=== PATIENT | male | born 1975 | race Hispanic/Latino ===

== ENCOUNTER 2017-10-30 13:04 | Emergency (ER) | payer MEDICAID, OTHER ==
[2017-10-30 13:20] VITALS: BP 146/96; PULSE 99; RESP 20; TEMP 98.6; O2SAT 98
--- NOTE | 2017-10-30 14:13 | C.PDOC ---
History Of Present Illness 42 year old male presents to the ER with a complaint of eye redness and discharge for the past 3 days. Patient reports he uses contact lenses. Denies fever, trauma, vision, change, or pain. EYE RED , DC X 3 DAYS. NO FEVER. +CONTACT LENS USE. NO TRAUMA, VISION CHANGE. NO PAIN EXAM NAD HEENT +CONJUNCTIVITIS R EYE. PERIORB NEG REMAINDE RNEG Time Seen by Provider: 10/30/17 13:40 Chief Complaint (Nursing): Eye Problem History Per: Patient History/Exam Limitations: no limitations Onset/Duration Of Symptoms: Days Current Symptoms Are (Timing): Still Present Injury To Eye?: No Wears Contact Lens?: Yes Associated Symptoms: Discharge From Eye, Other (Redness). denies: Pain Recent travel outside of the [place]: No Past Medical History Reviewed: Historical Data, Nursing Documentation, Vital Signs Vital Signs: Last Vital Signs Temp 98.6 F 10/30/17 13:16 Pulse 99 H 10/30/17 13:16 Resp 20 10/30/17 13:16 BP 146/96 H 10/30/17 13:16 Pulse Ox 98 10/30/17 14:15 Family History: States: Unknown Family Hx - Social History Hx Tobacco Use: No Hx Alcohol Use: Yes Hx Substance Use: Yes - Immunization History Hx Tetanus Toxoid Vaccination: No Hx Influenza Vaccination: No Hx Pneumococcal Vaccination: No Review Of Systems Except As Marked, All Systems Reviewed And Found Negative. Constitutional: Negative for: Fever Eyes: Positive for: Redness, Other (Discharge). Negative for: Pain, Vision Change Physical Exam - Physical Exam Appears: Non-toxic, No Acute Distress Skin: Normal Color, Warm, Dry Head: Atraumatic, Normacephalic Eye(s): bilateral: PERRL, EOMI, right: Other (Conjunctivitis, periorbital area normal), left: Normal Inspection Ear(s): Bilateral: Normal Nose: Normal Oral Mucosa: Moist Neck: Normal, Supple Neurological/Psych: Oriented x3, Normal Speech ED Course And Treatment O2 Sat by Pulse Oximetry: 98 (Room air) Pulse Ox Interpretation: Normal Disposition Counseled Patient/Family Regarding: Diagnosis, Need For Followup, Rx Given - Disposition Referrals: Yared Bauman [Staff Provider] - YOUR,OPTHOMOLOGIST [Other] Disposition: HOME/ ROUTINE Disposition Time: 14:15 Condition: GOOD Prescriptions: Ciprofloxacin 0.3% [Ciloxan 0.3% Ophth SOLN] 2 drop OD Q2 #1 bottle Instructions: Conjunctivitis (ED) Forms: [facility] ([place]), Work Excuse - Clinical Impression Clinical Impression: Conjunctivitis - Scribe Statement The provider has reviewed the documentation as recorded by the Scribe Maximilian Ma All medical record entries made by the Scribe were at my direction and personally dictated by me. I have reviewed the chart and agree that the record accurately reflects my personal performance of the history, physical exam, medical decision making, and the department course for this patient. I have also personally directed, reviewed, and agree with the discharge instructions and disposition.
== END 2017-10-30 14:21 | disposition home or self-care (01) ==
LOC: C.ER 13:04
DX: H10.9 Unspecified conjunctivitis (principal)

== ENCOUNTER 2017-12-08 09:13 | Emergency (ER) | payer OTHER ==
[2017-12-08 09:23] VITALS: BP 117/62; PULSE 70; RESP 18; TEMP 98.3; O2SAT 99
--- NOTE | 2017-12-08 09:41 | C.PDOC ---
History Of Present Illness 42 year old male presents to the ER with a complaint of exacerbation of his chronic right ankle pain for the past month. Patient has a Hx of right ankle open reduction internal fixation 2 years ago; he usually has intermittent pain to the area, however, now the pain is constant. Patient reports the pain is localized to the right medial malleolus with occasional radiation to the right medial tibia/fibula. Patient states the pain is worse in the morning and with weight bearing, but improves "once I get moving". Patient notes he used to use percocet 5mg on occasions but denies any chronic pain medication use now and has not tried any OTC pain medication. Denies any new trauma. EXAC CHRONIC R ANKLE PAIN X 1 MO. HO R ANKLE ORIF 2 YRS AGO, USUALLY W INTERMIT PAIN TO AREA NOW PAIN IS CONSTANT. LOCALIZED R MED MALLEOLUS W OCC RADIATION R MEDIAL TIB/FIB. WORSE IN MORNING AND WT BEAR BUT IMPROVES "ONCE I GET MOVING". DENIES NEW TRAUMA. PS USED TO USE PERCOCET 5 MG ON OCCASION BUT DENIES CHRONIC PAIN MED USE. NO OTC PAIN MED TRIED EXAM NAD EXT R LEG +POST OP SCARRING R MED MALL, R PROX MED TIB/FIB. AROM WO DIFF. NO FOCAL TEND. NO GROSS DEFORM SKIN INTACT REMAINDER NEG Time Seen by Provider: 12/08/17 09:29 Chief Complaint (Nursing): Back Pain History Per: Patient History/Exam Limitations: no limitations Onset/Duration Of Symptoms: Days Current Symptoms Are (Timing): Still Present Recent travel outside of the [place]: No Past Medical History Reviewed: Historical Data, Nursing Documentation, Vital Signs Vital Signs: Last Vital Signs Temp 98.3 F 12/08/17 09:21 Pulse 70 12/08/17 09:21 Resp 18 12/08/17 09:21 BP 117/62 12/08/17 09:21 Pulse Ox 99 12/08/17 10:14 - Medical History PMH: Fractures Family History: States: Unknown Family Hx - Social History Hx Tobacco Use: No Hx Alcohol Use: Yes Hx Substance Use: Yes (marijuana) - Immunization History Hx Tetanus Toxoid Vaccination: No Hx Influenza Vaccination: No Hx Pneumococcal Vaccination: No Review Of Systems Except As Marked, All Systems Reviewed And Found Negative. Musculoskeletal: Positive for: Foot Pain (Chronic right ankle pain) Neurological: Negative for: Weakness, Numbness Physical Exam - Physical Exam Appears: Non-toxic, No Acute Distress Skin: Normal Color, Warm, Dry Head: Atraumatic, Normacephalic Eye(s): bilateral: Normal Inspection Extremity: Other (Right leg with post op scarring to right medial malleolus and right proximal medial tibia/fibula. ROM without any difficulty. No focal tenderness. No gross deformity.) Pulses: Left Dorsalis Pedis: Normal, Right Dorsalis Pedis: Normal Neurological/Psych: Oriented x3, Normal Speech, Normal Motor, Normal Sensation Gait: Steady ED Course And Treatment O2 Sat by Pulse Oximetry: 99 - Other Rad Right ankle x-ray X-Ray: Interpreted by Me, Viewed By Me Interpretation: No acute fractures or dislocations. Right tibia/fibula x-ray X-Ray: Interpreted by Me, Viewed By Me Interpretation: No acute fractures or dislocations. Reevaluation Time: 10:11 Reassessment Condition: Unchanged (NO ACUTE FINDINGS. PAIN MEDS, REFERRAL PAIN MGMT, ADVISED POSSIBLE NEED FOR P.T.) Medical Decision Making Medical Decision Making: Plan: * Right ankle x-ray * Right tibia/fibula Disposition Counseled Patient/Family Regarding: Studies Performed, Diagnosis, Need For Followup, Rx Given - Disposition Referrals: Pierre Starks MD [Staff Provider] - Disposition: HOME/ ROUTINE Disposition Time: 10:12 Condition: GOOD Prescriptions: Ibuprofen [Motrin Tab] 800 mg PO Q6 #30 tab oxyCODONE/Acetaminophen [Percocet 5/325 mg Tab] 1 ea PO QID #8 tab Instructions: Ankle Strengthening Exercises Forms: [facility] ([place]), Work Excuse - Clinical Impression Clinical Impression: Chronic ankle pain - Scribe Statement The provider has reviewed the documentation as recorded by the Scribe Maximilian Ma All medical record entries made by the Scribe were at my direction and personally dictated by me. I have reviewed the chart and agree that the record accurately reflects my personal performance of the history, physical exam, medical decision making, and the department course for this patient. I have also personally directed, reviewed, and agree with the discharge instructions and disposition.
--- NOTE | 2017-12-08 10:09 | RAD ---
PROCEDURE: Right Ankle Radiographs. HISTORY: PAIN HO ORIF COMPARISON: None FINDINGS: BONES: Bone alignment and mineralization are normal. There is no acute displaced fracture or bone destruction. Status post open reduction and internal fixation of distal tibial fracture. There is no evidence of loosening or screw fracture. A well corticated ossific density inferior to the medial malleolus likely represents an accessory ossification center. JOINTS: Normal. Ankle mortise maintained. Talar dome intact SOFT TISSUES: Normal. OTHER FINDINGS: None. IMPRESSION: No acute fracture or dislocation. Status post ORIF distal tibial fracture, no evidence of hardware complications.
--- NOTE | 2017-12-08 10:13 | RAD ---
PROCEDURE: Radiographs of the right tibia and fibula. HISTORY: PAIN HO ORIF COMPARISON: None available. TECHNIQUE: Frontal and lateral views obtained. FINDINGS: BONES: Bone alignment and mineralization are normal. There is no acute displaced fracture or bone destruction. Status post open reduction and internal fixation of distal tibial fracture. No hardware complications. JOINT SPACES: Unremarkable. OTHER FINDINGS: None. IMPRESSION: No acute fracture or dislocation.
== END 2017-12-08 10:25 | disposition home or self-care (01) ==
LOC: C.ER 09:13
DX: G89.29 Other chronic pain (principal); M25.571 Pain in right ankle and joints of right foot